=== PATIENT | male | born 2000 | race Caucasian/White ===

== ENCOUNTER 2020-01-17 10:58 | Emergency (ER) | payer OTHER, SELFPAY ==
[2020-01-17 11:13] VITALS: BP 126/70; PULSE 78; RESP 20; TEMP 36.9; O2SAT 100
[2020-01-17 11:30] VITALS: BP 126/76; PULSE 88; RESP 16; O2SAT 98
--- NOTE | 2020-01-17 12:51 | ED.GENADULT ---
HPI - General Adult General Chief complaint: Anxiety Stated complaint: Panic attacks Time Seen by Provider: 01/17/20 12:11 Source: patient History of Present Illness HPI narrative: Patient is a 19 y/o male complaining of anxiety attack. He states that he was experiencing SOB, dizziness and numbness/tingling all over when it happened. However, his symptoms are resolved currently. He states that he has been having trouble sleeping. He was evaluated at another hospital recently with labs, etc. He states that his work up was mostly unremarkable. Review of Systems Constitutional: Constitutional: Denies chills, Reports difficulty sleeping, Denies fever(s), Denies headache(s) and Denies weakness Eyes: Eyes: Denies blurry vision ENT: Denies headache(s) and Denies neck pain Cardiovascular: Cardiovascular: Denies chest pain and Reports dyspnea Respiratory: Respiratory: Denies cough and Denies dyspnea Gastrointestinal: Gastrointestinal: Denies abdominal pain, Denies diarrhea, Denies nausea and Denies vomiting Genitourinary: Genitourinary: Denies hematuria and Denies dysuria Musculoskeletal: Musculoskeletal: Denies back pain and Denies neck pain Neurologic: Reports dizziness, Denies headache(s), Reports numbness, Reports tingling and Denies weakness Psychiatric: Psychiatric: Reports as per HPI and Reports anxiety Exam Const: General: no acute distress and well developed Orientation/consciousness: oriented to person, oriented to place, oriented to time and patient oriented x3 HENMT: Head: normocephalic Ears: external ears normal General nose exam: Normal external nose present Eyes: General: appearance normal, both eyes and all related structures Conjunctivae: conjunctivae normal Neck: Neck: normal visual inspection and full ROM Chest: Chest palpation & inspection: normal inspection of the chest and no tenderness Resp: Effort & Inspection: normal respiratory effort Auscultation: clear to auscultation bilaterally Cardio: Rate: regular rate Rhythm: regular rhythm GI: GI Palp: No abdominal tenderness and Yes Soft to palpation Skin: General skin exam: normal color and turgor normal Neuro: General: oriented to person, oriented to place, oriented to time and patient oriented x3 Cognition (Neuro): normal cognition Extrem: General: normal to inspection, full ROM and no pedal edema Psych: Appearance: grossly normal Mental Status: mental status grossly normal Affect: normal affect Course Reevaluation(s) Reevaluation #1: Offered patient labs, EKG, Xray for evaluation. Patient preferred to just take something for sleep instead. He does not wish to have a work up. Date: 01/17/20 Time: 12:59 Vital Signs Vital signs: Vital Signs Temperature 36.9 C 01/17/20 11:13 Pulse Rate 78 01/17/20 11:13 Respiratory Rate 20 01/17/20 11:13 Blood Pressure 126/70 01/17/20 11:13 Pulse Oximetry 100 01/17/20 11:13 Temperature 36.9 C 01/17/20 11:13 Pulse Rate 78 01/17/20 11:13 Respiratory Rate 20 01/17/20 11:13 Blood Pressure 126/70 01/17/20 11:13 Pulse Oximetry 01/17/20 11:13 Medical Decision Making Vital Signs Vital Signs: Vital Signs Temperature 36.9 C 01/17/20 11:13 Pulse Rate 78 01/17/20 11:13 Respiratory Rate 01/17/20 11:13 Blood Pressure 126/70 01/17/20 11:13 Pulse Oximetry 01/17/20 11:13 Temperature 36.9 C 01/17/20 11:13 Pulse Rate 78 01/17/20 11:13 Respiratory Rate 01/17/20 11:13 Blood Pressure 126/70 01/17/20 11:13 Pulse Oximetry 01/17/20 11:13 Discharge Plan Discharge Clinical Impression: Panic disorder Insomnia Qualifiers: Insomnia type: unspecified Qualified Code(s): G47.00 - Insomnia, unspecified Patient Disposition: Home, Self-Care Condition: Stable Instructions: Panic Disorder (ED), Insomnia (ED) Prescriptions: New zolpidem [Ambien] 5 mg tablet 5 mg PO HS Qty: 10 RF: 0 Follow-up/Referrals: PHYS
== END 2020-01-17 13:00 | disposition home or self-care (01) ==
PROVIDERS: Emergency Provider Emergency Medicine
DX: F41.0 Panic disorder [episodic paroxysmal anxiety] (principal); G47.00 Insomnia, unspecified
CPT/HCPCS: 99283

== ENCOUNTER 2020-08-05 20:33 | Emergency (ER) | payer OTHER, SELFPAY ==
--- NOTE | ~2020-08-05 | CT_ITS ---
EXAMINATION: CT abdomen pelvis w con DATE: 08/05/2020 21:34 INDICATION: Right lower quadrant abdominal pain. TECHNIQUE: Computed tomography (CT) of the abdomen and pelvis was performed with 100 mL Omnipaque 350 intravenous contrast. Automated exposure control and iterative reconstruction technique were employe d. The dose-length product was 546.95 mGy-cm. COMPARISON: None. FINDINGS: The visualized portions of the lung bases are clear without pneumonia or pleural effusion. The heart size is normal. No pericardial effusion. The liver, gallbladder, spleen, pancreas, adrenal glands, and kidneys are normal. There are no dilated loops of bowel. There is liquid stool in the col on suggestive of diarrhea. The appendix is normal. There are no pathologically enlarged lymph nodes. There is no free intraperitoneal fluid. There is mild lumbar spondylosis. IMPRESSION: 1. No etiology for the patient's symptoms. Reviewed, dictated and finalized at location A.
[2020-08-05 20:35] VITALS: BP 126/68; PULSE 84; RESP 20; TEMP 36.4; O2SAT 100
[2020-08-05 21:06] LABS: Basophils Percent Auto 0.2 % (0.2-1.2); Eosinophils Percent Auto 0.1 % (0-4.4); Hematocrit 50.4 % (42.0-52.0); Hemoglobin 17.1 g/dL (14.0-18.0); Immature Granulocyte Absolute 0.06 K/mm3 (0.00-0.031); Immature Granulocyte Percent A 0.4 % (0-0.5); Lymphocytes Absolute Auto 0.51 K/mm3 (0.9-3.2); Lymphocytes Percent Auto 3.1 % (18.3-44.2); Mean Corpuscular HGB Conc 33.9 g/dl (32-36); Mean Corpuscular Hemoglobin 31.2 pg (26-34); Mean Platelet Volume 10.4 fl (7.4-10.4); Monocytes Absolute Auto 0.9 K/mm3 (0.1-0.6); Monocytes Percent Auto 5.6 % (2.6-8.5); Neutrophils Absolute Auto 14.9 K/mm3 (1.3-6.7); Neutrophils Percent Auto 90.6 % (45.5-73.1); Platelet Count Result 276 k/mm3 (150-375); Red Blood Count 5.48 M/mm3 (4.6-6.20); Red Cell Distribution Width 11.6 % (11.5-14.5); White Blood Count 16.5 K/mm3 (4.5-10.0)
[2020-08-05 21:19] LABS: Alanine Aminotransferase 17 U/L (4-50); Albumin Level 5.3 g/dL (3.5-5.1); Alkaline Phosphatase 101 U/L (38-126); Anion Gap 12 mmol/L (8-16); Aspartate Amino Transferase 28 U/L (17-59); Bilirubin,Total 1.3 mg/dL (0.2-1.3); Blood Urea Nitrogen 17 mg/dL (9-20); Calcium 10.4 mg/dL (8.4-10.2); Carbon Dioxide 28 mmol/L (22-30); Chloride 102 mmol/L (98-107); Estimated CRCL calculation 107 ml/min; Estimated Glomerular Filt Rate > 60; Glucose 144 mg/dL (75-110); Lipase 86 U/L (23-300); Potassium 4.2 mmol/L (3.4-5.0); Sodium 142 mmol/L (137-145)
[2020-08-05] MEDS: SODIUM CHLORIDE 0.9% IV 1,000 ML 999 ML IV CONT (21:57)
[2020-08-05] MEDS: ONDANSETRON INJ 4 MG/2 ML VIAL IV PUSH (21:57)
--- NOTE | 2020-08-05 22:01 | ED.NAVMDI ---
HPI - Nausea/Vomiting/Diarrhea General Chief complaint: Nausea/Vomiting/Diarrhea Stated complaint: vomiting and diarrhea x 1pm Time Seen by Provider: 08/05/20 20:45 History of Present Illness HPI Narrative: Patient is a 20-year-old male who presents ER with nausea/vomiting/diarrhea. Patient reports he is concerned he may have food poisoning. He had eaten some boneless wings from [employer] just prior to this. Since then he has had emesis and diarrhea at least once an hour. He is not taking medications at home. Cannot find any aggravating or alleviating factors. Its associated with diffuse abdominal cramping. Has not had similar symptoms previously. Related Data Home Medications Medication Instructions Recorded Confirmed escitalopram oxalate mg 08/05/20 omeprazole 08/05/20 Allergies Allergy/AdvReac Type Severity Reaction Status Date / Time No Known Allergies Allergy Verified 08/05/20 20:50 Review of Systems Review of Systems: All systems reviewed & are unremarkable except as noted in HPI and below Constitutional: Constitutional: Denies chills, Denies fever(s) and Reports weakness ENT: Denies nasal congestion and Denies sore throat Cardiovascular: Cardiovascular: Denies chest pain, Denies rapid heart rate and Denies radiating jaw, neck or arm pain Respiratory: Respiratory: Denies cough, Denies dyspnea and Denies wheezing Gastrointestinal: Gastrointestinal: Reports abdominal pain, Denies bloating, Reports diarrhea, Reports nausea and Reports vomiting Genitourinary: Genitourinary: Denies dysuria and Denies urinary frequency PMFSH Past Medical History Medical History (Updated 08/05/20 @ 22:04 by Blaine Ashraf MD) Healthy adult male Surgical History Surgical History (Updated 08/05/20 @ 22:03 by Blaine Ashraf MD) No history of previous surgery Social History Social History (Updated 08/05/20 @ 22:03 by Blaine Ashraf MD) Smoking status: Never smoker Exam Narrative: Exam Narrative: GENERAL: Fatigued-appearing, well-nourished, and in no acute distress. HEAD: Normocephalic, atraumatic. ENT: Mucous membranes moist. CHEST: Clear to auscultation. No respiratory distress. HEART: Regular rate and rhythm. Normal peripheral pulses. ABDOMEN: Soft, mild tenderness right lower quadrant and right upper quadrant without guarding, nondistended. EXTREMITIES: Normal range of motion. No edema. SKIN: Warm, dry, no rash. NEURO: Alert and oriented x3. Course Vital Signs Vital signs: Vital Signs Temperature 97.5 F L 08/05/20 20:35 Pulse Rate 84 08/05/20 20:35 Respiratory Rate 20 08/05/20 20:35 Blood Pressure 126/68 08/05/20 20:35 Pulse Oximetry 100 08/05/20 20:35 Temperature 97.5 F L 08/05/20 20:35 Pulse Rate 84 08/05/20 20:35 Respiratory Rate 20 08/05/20 20:35 Blood Pressure 126/68 08/05/20 20:35 Pulse Oximetry 100 08/05/20 20:35 MDM - Nausea/Vomiting/Diarrhea Lab Data Result diagrams: 08/05/20 20:52 08/05/20 20:52 Labs: Lab Results 08/05/20 08/05/20 Range/Units 20:52 20:52 WBC 16.5 H (4.5-10.0) K/mm3 RBC 5.48 (4.6-6.20) M/mm3 Hgb 17.1 (14.0-18.0) g/dL Hct 50.4 (42.0-52.0) % MCV 92.0 (80-100) fl MCH 31.2 (26-34) pg MCHC 33.9 (32-36) g/dl RDW 11.6 (11.5-14.5) % Plt Count 276 (150-375) k/mm3 MPV 10.4 (7.4-10.4) fl Immature Gran % (Auto) 0.4 (0-0.5) % Neut % (Auto) 90.6 H (45.5-73.1) % Lymph % (Auto) 3.1 L (18.3-44.2) % [place] % (Auto) 5.6 (2.6-8.5) % Eos % (Auto) 0.1 (0-4.4) % Baso % (Auto) 0.2 (0.2-1.2) % Lymph # (Auto) 0.51 L (0.9-3.2) K/mm3 [place] # (Auto) 0.9 H (0.1-0.6) K/mm3 Eos # (Auto) 0.0 (0-0.3) K/mm3 Baso # (Auto) 0.0 (0.0-0.1) K/mm3 Abs Immat Gran (auto) 0.06 H (0.00-0.031) K/mm3 Absolute Neuts (auto) 14.9 H (1.3-6.7) K/mm3 Absolute Nucleated RBC 0.0 (0.0-0.012) K/mm3 Nucleated RBC % 0.0 (0.0-0.2) % Sodium
[2020-08-05 22:18] VITALS: BP 142/88; PULSE 82; RESP 16; O2SAT 99
[2020-08-05 22:20] LABS: Add Urine Microscopic? YES; Appearance Urine Clear (Clear); Bacteria Urine Trace /hpf; Bilirubin Urine Negative (Negative); Blood Urine Negative (Negative); Color Urine Yellow (Yellow); Glucose Urine UA Negative (Negative); Ketones Urine 1+ mg/dL (Negative); Leukocyte Esterase Ur Negative LEU/UL (Negative); Mucus Urine Heavy /lpf; Nitrate Urine Negative (Negative); Protein Urine 1+ mg/dL (Negative); RBC Urine 0-2 /hpf (0-2); Squamous Epithelial Cell Urine Rare /hpf (Few); Urobilinogen Urine Negative mg/dL (<2.0); WBC Urine 0-3 /hpf
[2020-08-05 22:21] LABS: Specific Grav Ur > 1.060 (1.001-1.035)
== END 2020-08-05 22:28 | disposition home or self-care (01) ==
PROVIDERS: Emergency Medicine; Emergency Provider Emergency Medicine; PCP Internal Medicine
DX: A05.9 Bacterial foodborne intoxication, unspecified (principal)
CPT/HCPCS: 36415; 74177; 80053; 81001; 83690; 85025; 96374; 99284; J2405; J7030; Q9967

== ENCOUNTER 2023-07-14 17:37 | Emergency (ER) | payer OTHER, SELFPAY ==
--- NOTE | 2023-07-14 17:39 | ED.ANIMALBIT ---
HPI - Animal Bite General Chief Complaint: Animal Bite Stated Complaint: Left Arm Dog Bite Time Seen by Provider: 07/14/23 17:38 Source: patient Mode of arrival: ambulatory Limitations: no limitations History of Present Illness HPI narrative: Lul is a 23-year-old male patient presenting to the clinic today with complaints a dog bite to the left wrist. He reports he works at [employer] and was cutting a pit bulls toenails when the pit bull bit him. He does have 2 puncture wounds to the left wrist with mild localized swelling. Tetanus is unknown. Wash the wound after it happened and came into the clinic for evaluation. States the pit bull was up-to-date on rabies. Related Data Home Medications Medication Instructions Recorded Confirmed escitalopram oxalate 10 mg tablet 10 mg PO DIRECTED 08/05/20 07/14/23 omeprazole 20 mg capsule,delayed 20 mg DIRECTED 08/05/20 07/14/23 release Allergies Allergy/AdvReac Type Severity Reaction Status Date / Time No Known Allergies Allergy Verified 08/05/20 20:50 Review of Systems Review of Systems: Pertinent positives per HPI. Patient denies any fever, chills, rash, headache, visual changes, dizziness, cough, runny nose, sore throat, shortness of breath, chest pain, palpitations, nausea, vomiting, diarrhea, constipation, abdominal pain, or any urinary issues. PMFSH Past Medical History Medical History Healthy adult male Surgical History Surgical History No history of previous surgery Social History Social History Smoking status: Never smoker Comments At the time of my signature, I reviewed and agree with the nursing past medical, surgical, social, and family history. There is no relevant family history pertinent to the patient complaint. Exam Narrative: General: Well-developed, well nourished, in no apparent distress Head: Normocephalic, atraumatic. Cardio: Regular rate and rhythm, s1 and s2 normal, no murmur appreciated. Resp: Clear to auscultation bilaterally, no rhonchi, rales, wheezing or rubs. Integumentary: [place], warm, and dry, 2 puncture wounds to the left dorsal wrist, redness and swelling localized to her around wounds, no discharge Course Course Emergency Course: Portions of this record may have been created with voice recognition software. Level of Care: Express Care Visit Vital Signs Vital signs: Vital signs reviewed MDM - Animal Bite MDM Narrative Medical decision making narrative: At the time of visit patient is resting comfortably on the exam table. Patient appears to be nontoxic. Plan: I suspect patient has a dog bite/puncture wound to the left wrist x2. Offered to do x-ray and patient declined. Prescription for Augmentin was sent to the pharmacy. Tdap was updated in the clinic. Supportive measures were discussed with the patient and they voiced understanding discharge instructions and agrees to treatment plan. Return precautions reviewed Differential Diagnosis Differential diagnosis: Likely bite by animal, dog bite and other (Puncture wound) Discharge Plan Discharge Clinical Impression: Puncture wound Dog bite Qualifiers: Encounter type: initial encounter Qualified Code(s): W54.0XXA - Bitten by dog, initial encounter Patient Disposition: Home, Self-Care Condition: Stable Instructions: Antibiotic Form, Animal Bite (ED), Puncture Wound (ED) Additional Instructions: Tdap was given in the clinic today. Keep wound clean and dry May apply triple antibiotic ointment to the wound twice daily times 48 hours then leave open air Wash daily with soap and water May take Tylenol/Motrin as needed for pain Watch for signs and symptoms of infection- redness, streaking, swelling, purulent discharge, or increase in pain. Follow u
[2023-07-14 17:50] VITALS: BP 117/69; PULSE 82; RESP 18; TEMP 36.7; O2SAT 98
[2023-07-14] MEDS: TETANUS,DIPHTHERIA,AC PERTUSSIS ADULT (0.5 ML) BOOSTRIX IM (18:10)
== END 2023-07-14 18:30 | disposition home or self-care (01) ==
PROVIDERS: Emergency Provider Nurse Practitioner Family; PCP Internal Medicine
DX: S61.532A Puncture wound without foreign body of left wrist, initial encounter (principal); W54.0XXA Bitten by dog, initial encounter; Y99.0 Civilian activity done for income or pay; Z23 Encounter for immunization
CPT/HCPCS: 90471; 90715; 99213; G0463